=== PATIENT | female | born 1985 | race Caucasian/White ===

== ENCOUNTER 2016-11-15 21:09 | Emergency (ER) | payer MEDICAID ==
[~2016-11-15 21:09] MED LIST: ALLEGRA30 MG; EYE DROPS; FLONASE16 GM
[2016-11-15] MEDS ORDERED: NO MEDS (21:25)
== END 2016-11-15 22:35 ==
LOC: EDMED 21:09
PROC: 2W3RXYZ Immobilization of Left Lower Leg using Other Device (ICD-10-PCS; principal; 2016-11-15)
DX: O9A.213 Injury, poisoning and certain other consequences of external causes complicating pregnancy, third trimester (principal); S93.402A Sprain of unspecified ligament of left ankle, initial encounter; Z3A.28 28 weeks gestation of pregnancy; X50.1XXA Overexertion from prolonged static or awkward postures, initial encounter; Y92.69 Other specified industrial and construction area as the place of occurrence of the external cause; Y99.0 Civilian activity done for income or pay